=== PATIENT | male | born 1975 | race Caucasian/White ===

== ENCOUNTER 2016-03-20 14:29 | Emergency (ER) | payer MEDICAID, OTHER ==
[~2016-03-20] VITALS: Ht 172.7 cm; Wt 90.0 kg
[~2016-03-20 14:29] MED LIST: DIVA500T52 PO; LISI-618 PO; METF500T4 PO; OLAN5Z PO
[2016-03-20] MEDS ORDERED: CLON1 PO (14:39)
[2016-03-20] MEDS ORDERED: CITA20TA9 PO (14:39)
[2016-03-20] MEDS ORDERED: RISP2 PO (14:39)
[2016-03-20 14:46] LABS: GLUCOSE,POINT OF CARE 137 MG/DL (70-110)
[2016-03-20] MEDS ORDERED: ALBUTEROL SULFATE 2.5 MG/0.5 ML NEB SOLUTION NEB ONE (18:20)
[2016-03-20 18:56] LABS: INFLUENZA TYPE B NEGATIVE FOR TYPE B (NEGATIVE)
[2016-03-20] MEDS ORDERED: 0.9% SODIUM CHLORIDE 5 ML NEB SOLUTION NEB ONE (19:09)
[2016-03-20 19:40] VITALS: BP 116/73
== END 2016-03-20 19:49 | disposition home or self-care (01) ==
LOC: EMS 14:31
DX: J20.9 Acute bronchitis, unspecified (principal); H10.33 Unspecified acute conjunctivitis, bilateral; E11.9 Type 2 diabetes mellitus without complications
CPT/HCPCS: 71010; 82962; 87804; 94640; 99285; J7613

== ENCOUNTER 2018-12-31 21:47 | Emergency (ER) | payer OTHER ==
[~2018-12-31] VITALS: Ht 172.7 cm; Wt 95.0 kg
[~2018-12-31 21:47] MED LIST changes: +CITA-106 PO; +CLON1TAB13 PO; +METF-960 PO; -METF500T4 PO; +OLAN5TAB40 PO; -OLAN5Z PO; +RISP2 PO
[2018-12-31 22:39] LABS: GLUCOSE,POINT OF CARE 86 MG/DL (70-110)
[2019-01-01 00:48] VITALS: BP 142/78
== END 2019-01-01 01:06 | disposition home or self-care (01) ==
LOC: EMS 21:47
DX: B86 Scabies (principal); E11.9 Type 2 diabetes mellitus without complications; F32.9 Major depressive disorder, single episode, unspecified; F20.9 Schizophrenia, unspecified; Z79.84 Long term (current) use of oral hypoglycemic drugs; Z79.899 Other long term (current) drug therapy